=== PATIENT | male | born 1995 | race Caucasian/White ===

== ENCOUNTER 2019-10-25 14:29 | Emergency (ER) | payer OTHER, SELFPAY ==
--- NOTE | 2019-10-25 14:57 | PC.NURSE ---
on telephone with insurance company, requested to check coverage before being seen.
[2019-10-25 15:12] VITALS: BP 151/78; PULSE 86; RESP 16; TEMP 37.2; O2SAT 100
--- NOTE | 2019-10-25 15:19 | ED.GENADULT ---
HPI - General Adult General Chief complaint: Upper Respiratory Infection Stated complaint: sore throat Time Seen by Provider: 10/25/19 15:26 Source: patient and RN notes reviewed Mode of arrival: ambulatory Limitations: no limitations History of Present Illness HPI narrative: This is a 24 years old male presents to the office for an evaluation of sore throat for six days. Associated with ears pain. Denies fever or sick contact. However, his girlfriend was sick with strep about three weeks ago. Denies history of Young. Related Data Allergies Allergy/AdvReac Type Severity Reaction Status Date / Time No Known Allergies Allergy Verified 10/25/19 14:38 Review of Systems Review of Systems: Narrative: CONSTITUTIONAL: Denies fever, chills. Reports feeling warmth ENT: Denies rhinorrhea, congestion. Reports throat pain that goes up to his ears CARDIOVASCULAR: Denies chest pain, palpitation RESPIRATORY: Denies dyspnea, wheezing, cough GASTROINTESTINAL: Denies abdominal pain, nausea, vomiting SKIN: Denies rash MUSCULOSKELETAL: Denies acute back pain NEUROLOGIC: Denies lightheaded All other systems reviewed are negative, except as documented in HPI. PMFSH Comments At time of signature, I agree with nursing past medical, surgical, social and family history. There is no relevant family history pertinent to the presenting complaint. Exam Narrative: Exam Narrative: GENERAL: This is a well-nourished, well-developed patient, in no apparent distress. EARS: External ears normal, auditory canals clear and without drainage, TMs normal without perforation. Hearing grossly intact. NOSE: External nose normal with no obvious nasal discharge, nares without redness, no rhinorrhea. THROAT: Mucous membranes moist, posterior pharynx erythema, edematous with exudative. NECK: Neck supple, non-tender without lymphadenopathy, masses or thyromegaly. CARDIOVASCULAR: Regular rate and rhythm without murmurs, gallops, or rubs. RESPIRATORY: Clear to auscultation. Breath sounds equal bilaterally. No wheezes, rales, or rhonchi. GASTROINTESTINAL: Abdomen soft, non-tender, nondistended. Bowel sounds are active. No hepato-splenomegaly, or palpable masses. No guarding. SKIN: warm, intact with no suspicious lesions or rash, good texture and turgor. NEURO: awake, alert, and oriented to person, place and time. There were no obvious focal neurologic abnormalities. Steady gait [place] Coma Scale Eye Opening: Spontaneous 4 [place] Coma Scale Motor: Obeys Commands 6 [place] Coma Scale Verbal: Oriented 5 Course Vital Signs Vital signs: Vital Signs Temperature 99 F 10/25/19 15:12 Pulse Rate 86 10/25/19 15:12 Respiratory Rate 16 10/25/19 15:12 Blood Pressure 151/78 H 10/25/19 15:12 Pulse Oximetry 100 10/25/19 15:12 Temperature 99 F 10/25/19 15:12 Pulse Rate 86 10/25/19 15:12 Respiratory Rate 16 10/25/19 15:12 Blood Pressure 151/78 H 10/25/19 15:12 Pulse Oximetry 100 10/25/19 15:12 Medical Decision Making MDM Narrative Medical decision making narrative: Discharge instructions reviewed with patient, as well as provided in writing per nursing staff. The instructions also include specific and strict return/GO TO THE ER as well as f/u information. All questions have been answered, and the patient deny any further questions with discharge and discharge plan. Patient is Urgent/Emergent. BP elevated due to current condition w/o HTN in PMH (Measure Met). Differential Diagnosis Differential Diagnosis: pneumonia, Allergic Rhinitis, Upper respiratory cough syndrome, Pharyngitis, Sinusitis, Bronchitis, otitis media, viral URI, COVID Vital Signs Vital Signs: Vital Signs Temperature 99 F 10/25/19 15:12 Pulse Rate 86 10/25/19 15:12 Respiratory Rate 16 10/25/19 15:12 Blood Pressure 151/78 H 10/25/19 15:12 Pulse Oximetry 100 10/25/19 15:12 Temperature 99 F 10/25/19 15:12 Pulse Rate 86 10/25/19 15:12 Respiratory R
== END 2019-10-25 16:01 | disposition home or self-care (01) ==
PROVIDERS: Emergency Provider Nurse Practitioner
DX: Z20.828 Contact with and (suspected) exposure to other viral communicable diseases (principal); J03.90 Acute tonsillitis, unspecified
CPT/HCPCS: 87081; 87880; 99213; G0463

== ENCOUNTER 2019-10-27 07:04 | Outpatient (NON) | payer OTHER, SELFPAY ==
[2019-10-27 20:43] LABS: SARS-CoV-2 RNA PCR Negative
== END 2019-10-27 07:05 ==
PROVIDERS: Visit Provider Nurse Practitioner
DX: J02.9 Acute pharyngitis, unspecified (principal)
CPT/HCPCS: 87635; C9803; U0003

== ENCOUNTER 2020-01-12 20:49 | Emergency (ER) | payer OTHER, SELFPAY ==
[2020-01-12 20:51] VITALS: BP 147/89; PULSE 69; RESP 20; TEMP 36.5; O2SAT 100
--- NOTE | 2020-01-12 21:13 | ED.EYEPROB ---
HPI - Eye Problem General Chief complaint: Eye Problems Stated complaint: L EYE INJURY Time Seen by Provider: 01/12/20 20:55 Source: patient Mode of arrival: ambulatory Limitations: no limitations History of Present Illness HPI Narrative: This is a 24 year old male that presents to the ER for left eye injury earlier today. Reports he was mowing and an acorn came up and hit him in the eye. Reports he has had increasing irritation in the eye, tearing, and photophobia. Also reports blurry vision. Denies vomiting. Related Data Home Medications Medication Instructions Recorded Confirmed No Home Medications 01/12/20 01/12/20 Allergies Allergy/AdvReac Type Severity Reaction Status Date / Time No Known Allergies Allergy Verified 01/12/20 20:54 Review of Systems Review of Systems: Narrative: CONSTITUTIONAL: Denies fever EYES: Reports visual changes, redness. Denies discharge. All systems reviewed & are unremarkable except as noted in HPI and below PMFSH Past Medical History Medical History (Updated 01/12/20 @ 21:22 by Whitney Mcneill PA-C) No active medical problems Social History Social History (Updated 01/12/20 @ 21:18 by Whitney Mcneill PA-C) Substance use: never Exam Narrative: Exam Narrative: GENERAL: Well-appearing, well-nourished, and in no acute distress. HEAD: Normocephalic, atraumatic. EYES: PERRLA and EOMI. Left eye with conjunctival injection and tearing. Eyelid everted, no foreign bodies noted. Positive fluorescein stain uptake in the left with small (1mm) corneal abrasion EXTREMITIES: Normal range of motion. No edema. SKIN: Warm, dry, no rash. NEURO: No focal deficits. Alert and oriented x3. PSYCH: Normal mood and affect Course Vital Signs Vital signs: Vital Signs Temperature 97.7 F 01/12/20 20:51 Pulse Rate 69 01/12/20 20:51 Respiratory Rate 20 01/12/20 20:51 Blood Pressure 147/89 H 01/12/20 20:51 Pulse Oximetry 100 01/12/20 20:51 Temperature 97.7 F 01/12/20 20:51 Pulse Rate 69 01/12/20 20:51 Respiratory Rate 20 01/12/20 20:51 Blood Pressure 147/89 H 01/12/20 20:51 Pulse Oximetry 100 01/12/20 20:51 MDM - Eye Problem MDM Narrative Medical decision making narrative: Patient presents to the ER for photophobia, eye irritation, redness and tearing. Small corneal abrasion noted, otherwise no acute findings on exam. His vision is worse in this eye, which I would expect with location in the visual field. Patient will be started on antibiotic eye ointment for corneal abrasion and was instructed to follow-up with an floral associate. Patient is stable and felt appropriate for further outpatient evaluation. He was given warnings to return to the ER Critical Care Time Critical Care Time Critical Care Time: No Discharge Plan Discharge Clinical Impression: Corneal abrasion Qualifiers: Encounter type: initial encounter Laterality: left Qualified Code(s): S05.02XA - Injury of conjunctiva and corneal abrasion without foreign body, left eye, initial encounter Patient Disposition: Home, Self-Care Condition: Stable Instructions: Antibiotic Form, Corneal Abrasion (ED) Additional Instructions: Return to the ER if you experience fever, worsening vision changes or pain, vomiting, or any other symptoms that are concerning to you Apply antibiotic eye ointment 4 times daily for the next 5 days Follow-up with ophthalmology Prescriptions: No Action No Home Medications RF: 0 Follow-up/Referrals: PHYSICIAN,CRITICAL CARE PHYSICIAN [Primary Care Provider] - Jorge Perez MD [Physician] - 3 Days
--- NOTE | 2020-01-12 21:22 | ED.EYEPROB ---
HPI - Eye Problem General Chief complaint: Eye Problems Stated complaint: L EYE INJURY Time Seen by Provider: 01/12/20 20:55 Source: patient Mode of arrival: ambulatory Limitations: no limitations History of Present Illness HPI Narrative: Patient presents to the emergency department for left eye injury this morning. Reports he was mowing and was hit in the eye with an acorn. Reports since he has had photophobia, redness, and tearing. Also reports blurry vision. Denies vomiting. Related Data Home Medications Medication Instructions Recorded Confirmed No Home Medications 01/12/20 01/12/20 Allergies Allergy/AdvReac Type Severity Reaction Status Date / Time No Known Allergies Allergy Verified 01/12/20 20:54 Review of Systems Review of Systems: Narrative: CONSTITUTIONAL: Denies fever EYES: Reports visual changes, redness. Denies discharge. All systems reviewed & are unremarkable except as noted in HPI and below PMFSH Past Medical History Medical History (Updated 01/12/20 @ 21:22 by Whitney Mcneill PA-C) No active medical problems Social History Social History (Updated 01/12/20 @ 21:18 by Whitney Mcneill PA-C) Substance use: never Exam Narrative: Exam Narrative: GENERAL: Well-appearing, well-nourished, and in no acute distress. HEAD: Normocephalic, atraumatic. EYES: PERRLA and EOMI. Eyelid everted, no foreign bodies noted. Left eye with conjunctival injection and tearing. Positive fluorescein stain uptake in the left with a small (1mm) corneal abrasion EXTREMITIES: Normal range of motion. No edema. SKIN: Warm, dry, no rash. NEURO: No focal deficits. Alert and oriented x3. PSYCH: Normal mood and affect Course Vital Signs Vital signs: Vital Signs Temperature 97.7 F 01/12/20 20:51 Pulse Rate 69 01/12/20 20:51 Respiratory Rate 20 01/12/20 20:51 Blood Pressure 147/89 H 01/12/20 20:51 Pulse Oximetry 100 01/12/20 20:51 Temperature 97.7 F 01/12/20 20:51 Pulse Rate 69 01/12/20 20:51 Respiratory Rate 20 01/12/20 20:51 Blood Pressure 147/89 H 01/12/20 20:51 Pulse Oximetry 100 10/16/20 20:51 MDM - Eye Problem MDM Narrative Medical decision making narrative: Patient presents to the emergency department for photophobia, tearing, conjunctival injection after an injury today. Patient with a small corneal abrasion. No other abnormalities noted on exam. His vision is worse in the left eye, which I would expect as this is in his visual field. Patient will be started on antibiotic eye ointment for corneal abrasion. He was instructed to follow-up with an high school band teacher. He was given warnings to return to the ER Critical Care Time Critical Care Time Critical Care Time: No Discharge Plan Discharge Clinical Impression: Corneal abrasion Qualifiers: Encounter type: initial encounter Laterality: left Qualified Code(s): S05.02XA - Injury of conjunctiva and corneal abrasion without foreign body, left eye, initial encounter Patient Disposition: Home, Self-Care Condition: Stable Instructions: Antibiotic Form, Corneal Abrasion (ED) Additional Instructions: Return to the ER if you experience fever, worsening vision changes or pain, vomiting, or any other symptoms that are concerning to you Apply antibiotic eye ointment 4 times daily for the next 5 days Follow-up with ophthalmology Prescriptions: No Action No Home Medications RF: 0 Follow-up/Referrals: PHYSICIAN,INDUSTRIAL CUSTODIAN [Primary Care Provider] - Jorge Perez MD [Physician] - 3 Days
[2020-01-12] MEDS: ERYTHROMYCIN OPHTH OINTMENT 1 GM TUBE 1 APPLIC LEFT EYE (21:27)
[2020-01-12 21:35] VITALS: BP 145/76; PULSE 67; RESP 14; TEMP 36.7; O2SAT 99
== END 2020-01-12 21:40 | disposition home or self-care (01) ==
PROVIDERS: Emergency Provider Emergency Medicine
DX: S05.02XA Injury of conjunctiva and corneal abrasion without foreign body, left eye, initial encounter (principal); W20.8XXA Other cause of strike by thrown, projected or falling object, initial encounter
CPT/HCPCS: 99283; A9270

== ENCOUNTER 2022-10-30 08:13 | Emergency (ER) | payer OTHER, SELFPAY ==
--- NOTE | ~2022-10-30 | XR_ITS ---
EXAMINATION: XR chest 2V DATE: 10/30/2022 08:44 INDICATION: Cough. TECHNIQUE: Frontal and lateral views of the chest were obtained on 3 radiographs. COMPARISON: None. FINDINGS: There is no pneumonia, pleural effusion, or pneumothorax. The heart size is normal. IMPRESSION: 1. No acute cardiopulmonary disease. Reviewed, dictated and finalized at location B.
--- NOTE | 2022-10-30 08:14 | ED.URI ---
HPI - URI/Sore Throat General Chief Complaint: Upper Respiratory Infection Stated Complaint: Sore Throat/Cough/Nausea Time Seen by Provider: 10/30/22 08:29 Source: patient, RN notes reviewed and old records reviewed Mode of arrival: ambulatory Limitations: no limitations History of Present Illness HPI Narrative: 27-year-old male presents to the [facility] with complaints of a sore throat, cough since last Wednesday, 1 week. States his gradually got worse. Has taken DayQuil and NyQuil Denies any past surgical history Onset (ago): week(s) (1) Treatments prior to arrival: cold medicine Related Data Allergies Allergy/AdvReac Type Severity Reaction Status Date / Time No Known Allergies Allergy Verified 10/30/22 08:16 Review of Systems Review of Systems: All systems reviewed & are unremarkable except as noted in HPI and below Constitutional: Constitutional: Reports no additional constitutional complaints Eyes: Eyes: Reports no additional eye complaints ENT: Reports as per HPI Cardiovascular: Cardiovascular: Reports no additional cardiovascular complaints, Denies chest pain and Denies dyspnea Respiratory: Respiratory: Reports as per HPI, Denies chest congestion, Reports cough and Denies dyspnea Gastrointestinal: Gastrointestinal: Reports no additional gastrointestinal complaints, Denies abdominal pain, Denies nausea and Denies vomiting Musculoskeletal: Musculoskeletal: Reports no additional musculoskeletal complaints Integumentary/Breasts: Skin/Breast: Reports system reviewed and no additional complaints, except as docu Neurologic: Reports system reviewed and no additional complaints, except as documented Psychiatric: Psychiatric: Reports no additional psychiatric complaints Allergic/Immunologic: Allergic/Immunologic: Reports no additional allergic/immunologic complaints PMFSH Past Medical History Medical History No active medical problems Social History Social History Substance use: never Comments At the time of my signature, I reviewed and agree with the nursing past medical, surgical, social, and family history. There is no relevant family history pertinent to the patient complaint. Exam Const: General: cooperative, healthy appearing, comfortable, no acute distress, well developed, alert and well nourished Nutritional Appearance: well nourished Orientation/consciousness: patient oriented x3 Limitations: no limitations HENMT: Head: normal to inspection Ears: hearing grossly normal bilaterally, external ears normal, TM's normal bilaterally and EAC's normal Face/Nose/Sinus: Normal external nose present, Normal nares present, Normal nasal mucous membranes and turbinates present and normal facial exam Face and sinus: normal facial exam, sinuses nontender and face symmetric Mouth: Yes Normal oral and palatal mucosa present, Yes lip normal, Yes tongue normal and Yes moist mucous membranes Throat: posterior oropharynx normal, tonsils normal, uvula midline and no uvular edema Eyes: General: appearance normal, both eyes and all related structures Alignment and Position: alignment normal Periorbital: periorbital findings normal Pupils: Equal, round and reactive pupils present EOM: EOMs intact bilaterally Neck: Neck: normal visual inspection, full ROM, no lymphadenopathy and no meningeal signs Chest: Chest palpation & inspection: normal inspection of the chest Resp: Effort & Inspection: normal respiratory effort, able to speak in complete sentences, Actively coughing dry and not labored Auscultation: no crackles, no rales, no rhonchi and wheezes expiratory wheezes, left lower and right lower Cardio: Rate: regular rate Rhythm: regular rhythm Back/Spine/Pelvis: Cervical Spine: cervical ROM normal Thoracic/Lumbar Spine: No thoracic spinal tenderness Skin: General skin exam: normal color and no rashes or l
[2022-10-30 08:36] VITALS: BP 127/81; PULSE 72; RESP 16; TEMP 36.6; O2SAT 100
== END 2022-10-30 09:03 | disposition home or self-care (01) ==
PROVIDERS: Emergency Provider Nurse Practitioner; PCP Student in an Organized Health Care Education/Training Program
DX: J40 Bronchitis, not specified as acute or chronic (principal); Z20.822 Contact with and (suspected) exposure to COVID-19
CPT/HCPCS: 71046; 87081; 87426; 87804; 87880; 99213; C9803; G0463